=== PATIENT | female | born 1960 | race African-American/Black ===

== ENCOUNTER 2019-11-06 14:54 | Emergency (ER) | payer OTHER ==
[~2019-11-06] VITALS: Ht 175.3 cm; Wt 117.9 kg
[2019-11-06] MEDS ORDERED: FORTAMET1000 MG (15:31)
[2019-11-06] MEDS ORDERED: LOSARTAN-HCTZ1 EAC1 (15:32)
[2019-11-06] MEDS ORDERED: ULTRACET PO (20:06)
== END 2019-11-06 21:20 | disposition home or self-care (01) ==
LOC: ER 14:54
DX: S92.351A Displaced fracture of fifth metatarsal bone, right foot, initial encounter for closed fracture (principal); S90.111A Contusion of right great toe without damage to nail, initial encounter; W10.8XXA Fall (on) (from) other stairs and steps, initial encounter; Y93.01 Activity, walking, marching and hiking; Y92.89 Other specified places as the place of occurrence of the external cause; Y99.8 Other external cause status

== ENCOUNTER 2021-12-26 15:32 | Emergency (ER) | payer OTHER ==
[~2021-12-26] VITALS: Ht 170.2 cm; Wt 108.9 kg
[~2021-12-26 15:32] MED LIST: FORTAMET1000 MG; LOSARTAN-HCTZ1 EAC1; ULTRACET PO
[2021-12-26] MEDS ORDERED: SYNTHROID75 MCG PO (15:56)
[2021-12-26] MEDS ORDERED: GLIPIZIDE XL5 MG (15:56)
[2021-12-26] MEDS ORDERED: CYCLOBENZAPRINE10 MG PO (20:10)
== END 2021-12-26 20:43 | disposition home or self-care (01) ==
LOC: ER 15:32
DX: M54.50 Low back pain, unspecified (principal); E11.9 Type 2 diabetes mellitus without complications; I10 Essential (primary) hypertension; E03.9 Hypothyroidism, unspecified; Z79.84 Long term (current) use of oral hypoglycemic drugs